=== PATIENT | female | born 1960 | race Caucasian/White ===

== ENCOUNTER 2017-04-01 11:10 | Emergency (ER) | payer OTHER ==
[~2017-04-01] VITALS: Ht 167.6 cm; Wt 65.8 kg
[2017-04-01 11:31] VITALS: BP 127/74
--- NOTE | 2017-04-01 12:23 | Emergency Room Report ---
History of Present Illness General Chief Complaint: Upper Extremity Injury Source: Patient Present Illness HPI 56-year-old female presents to the emergency department complaining of pain, tenderness, swelling to the right elbow x3 days. Patient states she is status post mechanical fall with diagnosed ulnar fracture. She states she was evaluated in the emergency department and told that she needs to followup with home specialist for possible surgery. Pt states her pain is 10 out of 10 in severity it is localized. she was prescribed narcotic medications however she has not filled it because she does not want to take them. Patient states she's been taking Motrin. Patient denies changes in character of her pain from onset. Patient denies new trauma or fall. She denies fevers, chills or skin color changes to the affected arm or change in temperature. Patient states that she went to her PCP this morning and was told that it will take several days for orthopedic authorization and was instructed to go to the ER if she wants to be seen sooner by home specialist.Denies numbness tingling or loss of sensation or gross motor movements of the extremities, incontinence of bowel or bladder. Denies CP, Palpitations, LOC, AMS, dizziness, Changes in Vision, Sensation, paresthesias, or a sudden severe headache. Allergies: Coded Allergies: No Known Allergies (Unverified , 04/01/17) Patient History Past Medical History: see triage record Past Surgical History: none Pertinent Family History: none Last Menstrual Period: na Now: No Reviewed Nursing Documentation: PMH: Agreed, PSxH: Agreed Nursing Documentation-PMH Past Medical History: No Stated History Review of Systems All Other Systems: negative except mentioned in HPI Physical Exam Vital Signs Date Time Temp Pulse Resp B/P Pulse Ox O2 Delivery O2 Flow Rate FiO2 04/01/17 11:31 97.9 86 18 127/74 98 Room Air Sp02 EP Interpretation: reviewed, normal General Appearance: no apparent distress, alert, GCS 15, non-toxic Head: normocephalic, atraumatic Eyes: bilateral eye normal inspection, bilateral eye PERRL ENT: hearing grossly normal, normal pharynx, no angioedema, normal voice Neck: full range of motion Respiratory: lungs clear, normal breath sounds, speaking full sentences Cardiovascular #1: regular rate, rhythm, no edema Musculoskeletal: back normal, gait/station normal, decreased range of motion - Secondary to long arm posterior splint. that appears properly placed. , tender - TTP to the A/C area of the RIght elbow, there is a long arm posterior splint in splace. pt. is NVI. Neurologic: alert, oriented x3, responsive, motor strength/tone normal, sensory intact, speech normal Psychiatric: judgement/insight normal, memory normal, mood/affect normal Skin: normal color, no rash, warm/dry, well hydrated Medical Decision Making PA Attestation Dr. Noel is my supervising Physician whom patient management has been discussed with. Diagnostic Impression: Primary Impression: Encounter for medical screening examination Additional Impression: Fracture follow-up ER Course 56-year-old female presents to the emergency department complaining of pain, tenderness, swelling to the right elbow x3 days. Patient states she is status post mechanical fall with diagnosed ulnar fracture. She states she was evaluated in the emergency department and told that she needs to followup with home specialist for possible surgery. Pt states her pain is 10 out of 10 in severity it is localized. she was prescribed narcotic medications however she has not filled it because she does not want to take them. Patient states she's been taking Motrin. Patient denies changes in character of her pain from onset. Patient denies new trauma or fall. She denies fevers, chills or skin color changes to the affected arm or change in temperature. Patient states that she went to her PCP this morning and was told that it will take several days for orthopedic authorization and was instructed to go to the ER if she wants to be seen sooner by home specialist.Denies numbness tingling or loss of sensation or gross motor movements of the extremities, incontinence of bowel or bladder. Denies CP, Palpitations, LOC, AMS, dizziness, Changes in Vision, Sensation, paresthesias, or a sudden severe headache. Ddx considered but are not limited to Fracture, dislocation, contusion, compartment syndrome, circulatory compromise, Sprain/Strain/Spasm. Displacement of fracture. Vital signs: are WNL, pt. is afebrile H&PE are most consistent with previously evaluated, and splinted proximal ulnar fracture of the right elbow. ORDERS: - X-ray is not warranted as imaging has already been performed, and no new trauma or fall. ED INTERVENTIONS: - Facilitation of care plan: I spoke with this patient's primary care provider and he stated that he would be submitting insurance authorization for orthopedic surgery. He states that patient was adamant about being seen by specialist as soon as possible. PCP states that will take several days for referral to be authorized. I do not suspect an emergent condition at this time. with current presentation pt. is stable for close outpatient follow up with [facility]. D/w pt. to return to ED with worsening or new symptoms. DISCHARGE: At this time pt. is stable for d/c to home. Will provide printed patient care instructions, and any necessary prescriptions. Care plan and follow up instructions have been discussed with the patient prior to discharge. Last Vital Signs Date Time Temp Pulse Resp B/P Pulse Ox O2 Delivery O2 Flow Rate FiO2 04/01/17 11:31 97.9 86 18 127/74 98 Room Air Disposition: HOME, SELF-CARE Condition: Stable Patient Instructions: Medical Screening Exam, Elbow Fracture Additional Instructions: Take previously prescribed medications as directed. Follow up with an [facility] in 3-5 days, your PCP was contacted and is submitting pre-authorization for Ortho Specialist. - Please note that this Emergency Department Report was dictated using [employer] technical [employer] technology software, occasionally this can lead to erroneous entry secondary to interpretation by the dictation equipment. Libertad Sequeira Apr 01, 2017 12:23
[2017-04-01 12:40] VITALS: BP 127/74
== END 2017-04-01 12:40 | disposition home or self-care (01) ==
LOC: EMR 12:30
DX: S52.201D Unspecified fracture of shaft of right ulna, subsequent encounter for closed fracture with routine healing (principal)
CPT/HCPCS: 99282